=== PATIENT | female | born 1995 | race Caucasian/White ===

== ENCOUNTER 2017-05-27 15:42 | Outpatient (CLI) | payer OTHER ==
[2017-05-27 16:11] LABS: BASOPHILS % (AUTO) 0.3 %; EOSINOPHILS # (AUTO) 0.1 10^3/uL (0.0-0.7); EOSINOPHILS % (AUTO) 0.7 %; HCT - HEMATOCRIT 35.2 % (37.0-47.0); HGB - HEMOGLOBIN 11.7 g/dL (12.0-16.0); LYMPHOCYTES # (AUTO) 2.4 10^3/uL (1.5-3.5); LYMPHOCYTES % (AUTO) 22.3 %; MEAN CORPUSCULAR HEMOGLOBIN 29.1 pg (27.0-31.0); MEAN CORPUSCULAR HGB CONC 33.2 g/dL (32.0-36.0); MEAN CORPUSCULAR VOLUME 87.7 fL (81.0-99.0); MEAN PLATELET VOLUME 8.5 fL (7.9-10.8); MONOCYTES # (AUTO) 0.5 10^3/uL (0.0-1.0); MONOCYTES % (AUTO) 4.4 %; NEUTROPHILS # (AUTO) 7.9 10^3/uL (1.5-6.6); NEUTROPHILS % (AUTO) 72.3 %; RED BLOOD COUNT 4.01 10^6/uL (4.20-5.40); RED CELL DISTRIBUTION WIDTH 12.6 % (12.0-15.0)
[2017-05-27 16:13] LABS: BILIRUBIN,URINE NEGATIVE (NEGATIVE)
[2017-05-27 16:30] LABS: WBC,URINE 0-3 /HPF (0-5)
[2017-05-28 10:08] LABS: TEST RESULT REPORT
== END 2017-05-27 15:43 | disposition home or self-care (01) ==
LOC: LAB 15:42
PROVIDERS: ATTEND Obstetrics & Gynecology
DX: Z36.9 Encounter for antenatal screening, unspecified (principal); R82.99 Other abnormal findings in urine
CPT/HCPCS: 36415; 81001; 81599; 85025; 86592; 86762; 86803; 86850; 86900; 86901; 87340; 87389

== ENCOUNTER 2017-05-28 14:55 | Outpatient (CLI) | payer OTHER | END 2017-05-28 14:56 | LOC: LAB.R 14:55 | PROVIDERS: ATTEND Obstetrics & Gynecology | DX: Z11.3 Encounter for screening for infections with a predominantly sexual mode of transmission (principal); Z36.9 Encounter for antenatal screening, unspecified; R82.99 Other abnormal findings in urine | CPT/HCPCS: 87086; 87491; 87591 ==

== ENCOUNTER 2017-08-07 16:30 | Outpatient (CLI) | payer OTHER | END 2017-08-07 16:31 | disposition home or self-care (01) | LOC: LAB 16:30 | PROVIDERS: ATTEND Obstetrics & Gynecology | DX: Z36.0 Encounter for antenatal screening for chromosomal anomalies (principal) | CPT/HCPCS: 36415; 81599; 82105; 82677; 84702; 86336 ==

== ENCOUNTER 2017-08-28 12:26 | Outpatient (CLI) | payer OTHER ==
--- NOTE | 2017-08-29 09:00 | Ultrasound Report ---
OB ULTRASOUND: 08/28/2017 CLINICAL INDICATION: anatomy. TECHNIQUE: Real-time scanning was performed with loss prevention representative static images obtained. LAST MENSTRUAL PERIOD unsure, 03/2017 CLINICAL AGE -- US AGE 21 weeks 2 days EFW HADLOCK 390 grams EFW% HADLOCK -- HEART RATE 138 bpm EDC -- US EDC 01/06/2018 BPD HADLOCK 21 weeks 6 days; Mean mm 52 HC HADLOCK 21 weeks 3 days; Mean mm 191 AC HADLOCK 21 weeks 0 days; Mean mm 159 FL HADLOCK 20 weeks 5 days; Mean mm 34 PRESENTATION variable PLACENTAL LOCATION posterior CERVICAL LENGTH TV 4.7 cm AMNIOTIC FLUID 15.59 cm, subjectively normal; MVP 4.4 cm FINDINGS There is a single viable intrauterine gestation, in variable position. heart rate is 138 BPM. The placenta is posterior. There is no evidence of placenta previa. The placenta appears to demonstrate a circumvallate configuration. Amniotic fluid volume is subjectively normal, with the deepest pocket of 4.4 cm. By size, the fetus measures 21 weeks 2 days (uncertain LMP). The following anatomic structures were visualized and appear normal: The intracranial contents, including the ventricles and posterior fossa; the lips and orbits; the spine; the heart, including 4 chamber view and outflow tracts, and diaphragm; the abdominal contents, including the stomach, the bilateral kidneys, and urinary bladder, as well as a normal 3 vessel cord insertion; 4 limbs. No free fluid or adnexal lesion is appreciated. IMPRESSION: SINGLE VIABLE INTRAUTERINE GESTATION, MEASURING 21 WEEKS 2 DAYS BY SIZE. NORMAL ANATOMIC SURVEY. CIRCUMVALLATE CONFIGURATION OF THE PLACENTA. FOLLOWUP SCAN TO EVALUATE GROWTH IS RECOMMENDED IN THE THIRD TRIMESTER (28-32 WEEKS GESTATION). TD: 08/28/2017 17:34 MTDD
== END 2017-08-28 12:27 | disposition home or self-care (01) ==
LOC: DI 12:26
PROVIDERS: ATTEND Obstetrics & Gynecology
DX: Z36.9 Encounter for antenatal screening, unspecified (principal); O43.112 Circumvallate placenta, second trimester
CPT/HCPCS: 76811

== ENCOUNTER 2017-09-30 13:01 | Outpatient (CLI) | payer OTHER ==
[2017-09-30 14:17] LABS: HGB - HEMOGLOBIN 10.6 g/dL (12.0-16.0); MEAN CORPUSCULAR HEMOGLOBIN 30.7 pg (27.0-31.0); MEAN CORPUSCULAR HGB CONC 34.1 g/dL (32.0-36.0); MEAN CORPUSCULAR VOLUME 90.1 fL (81.0-99.0); RED BLOOD COUNT 3.46 10^6/uL (4.20-5.40); RED CELL DISTRIBUTION WIDTH 12.4 % (12.0-15.0); WHITE BLOOD COUNT 9.5 x10^3/uL (4.8-10.8)
== END 2017-09-30 13:02 | disposition home or self-care (01) ==
LOC: LAB 13:01
PROVIDERS: ATTEND Obstetrics & Gynecology
DX: Z34.90 Encounter for supervision of normal pregnancy, unspecified, unspecified trimester (principal)
CPT/HCPCS: 36415; 82950; 86850

== ENCOUNTER 2017-10-22 11:27 | Outpatient (CLI) | payer OTHER ==
--- NOTE | 2017-10-23 09:20 | Ultrasound Report ---
OB FOLLOWUP: 10/22/2017 CLINICAL INDICATION: Check growth, circumvallate appearance of the placenta on anatomy scan. COMPARISON: 08/28/2017. TECHNIQUE: Real-time scanning was performed with telemarketing sales representative static images obtained. LAST MENSTRUAL PERIOD: 04/01/2017 Clinical Age: 29 weeks 1 day US Age: 28 weeks 6 days EFW Hadlock: 1174 grams EFW% Hadlock: 34% Heart Rate: 133 bpm EDC: 01/06/2018 US EDC: 01/08/2018 BPD Hadlock: 29 weeks 3 days HC Hadlock: 29 weeks 2 days AC Hadlock: 27 weeks 4 days FL Hadlock: 28 weeks 0 days Presentation: cephalic Placental Location: posterior Cervical Length: 4.4 cm Amniotic Fluid: VERONICA 10.7 cm; MVP 3.4 cm FINDINGS There is a single viable intrauterine gestation, in cephalic presentation. heart rate is 133 BPM. The placenta is posterior, without evidence of previa. Previously seen circumvallate appearance is not reproduced on today's examination. By size, the fetus measures 28 weeks 6 days (29 weeks 1 day by office dating). No free fluid or adnexal lesion is appreciated. IMPRESSION: SINGLE VIABLE INTRAUTERINE GESTATION, WITH EXPECTED GROWTH. TD: 10/22/2017 12:47 [facility]
== END 2017-10-22 11:28 | disposition home or self-care (01) ==
LOC: DI 11:27
PROVIDERS: ATTEND Obstetrics & Gynecology
DX: Z36.2 Encounter for other antenatal screening follow-up (principal)
CPT/HCPCS: 76816

== ENCOUNTER 2017-10-30 14:59 | Outpatient (CLI) | payer OTHER | END 2017-10-30 23:59 | LOC: LAB.R 14:59 | PROVIDERS: ATTEND Obstetrics & Gynecology | DX: O23.43 Unspecified infection of urinary tract in pregnancy, third trimester (principal) | CPT/HCPCS: 87086 ==

== ENCOUNTER 2017-11-16 20:50 | Emergency (ER) | payer OTHER ==
[2017-11-16 20:58] VITALS: BP 140/90
[2017-11-16 21:10] LABS: BILIRUBIN,URINE NEGATIVE (NEGATIVE); GLUCOSE, URINE (UA) NEGATIVE (NEGATIVE); KETONES,URINE (UA) NEGATIVE (NEGATIVE); LEUKOCYTE ESTERASE, URINE SMALL (NEGATIVE); NITRITE,URINE NEGATIVE (NEGATIVE); OCCULT BLOOD,URINE NEGATIVE (NEGATIVE); PH,URINE 6.5 PH (5.0-7.5); PROTEIN,URINE NEGATIVE (NEGATIVE); UROBILINOGEN,URINE 0.2 (NORMAL) E.U./dL (NORMAL)
[2017-11-16 21:20] LABS: BACTERIA,URINE Rare /HPF (None Seen); RBC,URINE 0-5 /HPF (0-5); SQUAMOUS EPITHELIAL CELL,UR MANY Squamous (<= Few); WBC CLUMPS,URINE PRESENT
[2017-11-16 21:21] LABS: CLARITY,URINE CLEAR (CLEAR)
--- NOTE | 2017-11-16 21:22 | ED Physician Documentation ---
PD HPI UPPER EXT INJURY - Stated complaint Stated Complaint: 36 WK PREG/LT ARM PX - Chief complaint Chief Complaint: Ext Problem - History obtained from History obtained from: Patient - History of Present Illness Location: Left, Arm Type of injury: Other (No specific injury.) Timing - onset: Today Associated symptoms: No: Weakness, Numbness Similar symptoms before: Has not had sx before - Additonal information Additional information: The patient is a 22-year-old female who presents with pain in her left axilla, radiating down her arm. It is a mild pain which started this morning and is constant. She denies any traumatic injury. She denies numbness or weakness. She denies history of similar symptoms in the past. She is left-hand dominant. She is currently at 32 weeks gestation. Review of Systems Constitutional: denies: Fever Nose: denies: Congestion Cardiac: denies: Chest pain / pressure Respiratory: denies: Dyspnea, Cough GI: denies: Abdominal Pain, Nausea, Vomiting : denies: Dysuria Skin: denies: Rash Musculoskeletal: denies: Back pain, Extremity swelling Neurologic: denies: Focal weakness, Numbness, Headache PD PAST MEDICAL HISTORY - Past Medical History Past Medical History: Yes Other Past Medical History: Preeclampsia - Past Surgical History Past Surgical History: Yes - Present Medications Home Medications: Ambulatory Orders Medication Instructions Recorded Confirmed Pnv95/Ferrous Fumarate/FA 1 each PO 11/16/17 [ Formula] - Allergies Allergies/Adverse Reactions: Allergies Allergy/AdvReac Type Severity Reaction Status Date / Time No Known Drug Allergies Allergy Verified 11/16/17 20:57 - Social History Does the pt smoke?: No Smoking Status: Never smoker Does the pt drink ETOH?: No Does the pt have substance abuse?: No - Immunizations Immunizations are current?: Yes PD ED PE NORMAL - Vitals Vital signs reviewed: Yes (Initially hypertensive.) - General General: Alert and oriented X 3, Well developed/nourished - HEENT HEENT: Atraumatic, Moist mucous membranes - Neck Neck: No bony TTP, No adenopathy - Cardiac Cardiac: RRR, No murmur - Respiratory Respiratory: No respiratory distress, Clear bilaterally - Abdomen Abdomen: Soft, Non tender, Other (Gravid uterus with fundal height consistent with dates. FHR 160.) - Back Back: No CVA TTP - Derm Derm: No rash - Extremities Extremities: No edema, No calf tenderness / cord, Other (There is mild tenderness to palpation over the anterior aspect of the left axilla/pectoralis region. She has full range of motion of the shoulder. There is no axillary adenopathy, no swelling. Distal neurovascular is intact.) - Neuro Neuro: Alert and oriented X 3, No motor deficit, No sensory deficit Results - Vitals Vitals: Vital Signs - 24 hr 11/16/17 20:54 Temperature 36.5 C Heart Rate 86 Respiratory 20 Rate Blood Pressure 140/90 H O2 Saturation 100 Oxygen O2 Source Room air - Labs Labs: Laboratory Tests 11/16/17 21:03 Urine Color YELLOW Urine Clarity CLEAR Urine pH 6.5 Ur Specific [place] 1.015 Urine Protein NEGATIVE Urine Glucose (UA) NEGATIVE Urine Ketones NEGATIVE Urine Occult Blood NEGATIVE Urine Nitrite NEGATIVE Urine Bilirubin NEGATIVE Urine Urobilinogen 0.2 (NORMAL) Ur Leukocyte Esterase SMALL H Urine RBC 0-5 Urine WBC 6-10 H Urine WBC Clumps PRESENT Ur Squamous Epith Cells MANY Squamous H Urine Bacteria Rare PD MEDICAL DECISION MAKING - ED course Complexity details: considered differential, d/w patient, d/w family ED course: The patient's presentation is significant for mild musculoskeletal discomfort in the left axilla/pectoralis region. There is no evidence of infectious process, and I doubt venous thrombus. I do not think imaging studies are clinically indicated. I discussed with the patient and her symptomatic treatment, outpatient follow-up, as well as potentially worrisome signs or symptoms that should prompt reevaluation in the emergency department. Departure - Departure Disposition: 01 Home, Self Care Clinical Impression: Pain of upper extremity Qualifiers: Laterality: left Qualified Code(s): M79.602 - Pain in left arm Qualifiers: Weeks of gestation: 32 weeks Qualified Code(s): Z3A.32 - 32 weeks gestation of Condition: Stable Instructions: ED Strain Muscle Ext Follow-Up: Earl Reina DO [Provider Admit Priv/Credential] - Comments: Apply ice pack to your upper arm intermittently for the next 2 or 3 days. You can use Tylenol up to 650 mg every 4-6 hours if needed for pain. Follow up with your primary physician within 1-2 weeks. Call to schedule an appointment. Return to the emergency department if you develop increasing pain, numbness or weakness, or otherwise worsening symptoms. Discharge Date/Time: 11/16/17 21:25
== END 2017-11-16 21:25 | disposition home or self-care (01) ==
LOC: ED 20:50
DX: O99.89 Other specified diseases and conditions complicating pregnancy, childbirth and the puerperium (principal); M79.602 Pain in left arm; Z3A.36 36 weeks gestation of pregnancy
CPT/HCPCS: 81001; 99282; 99283

== ENCOUNTER 2017-11-27 08:39 | Outpatient (CLI) | payer OTHER ==
--- NOTE | 2017-11-28 16:17 | Ultrasound Report ---
OB FOLLOWUP: 11/27/2017 CLINICAL INDICATION: Size-date discrepancy. TECHNIQUE: Real-time scanning was performed with training representative static images obtained. LAST MENSTRUAL PERIOD: 04/01/2017 Clinical Age: 34 weeks 2 days US Age: 33 weeks 5 days EFW Hadlock: 2180 g EFW% Hadlock: 21% Heart Rate: 142 bpm EDC: 01/06/2018 US EDC: 01/10/2018 BPD Hadlock: 33 weeks 3 days: Mean mm 83.2 HC Hadlock: 35 weeks 1 day; Mean mm 314.0 AC Hadlock: 33 weeks 0 days; Mean mm 289.3 FL Hadlock: 33 weeks 3 days; Mean mm 64.9 Presentation: cephalic Placental Location: posterior Cervical Length: --- Amniotic Fluid: 12.1 cm FINDINGS: There is a single viable intrauterine gestation in cephalic presentation. heart rate is 142 BPM. The placenta is posterior, without evidence of previa. Amniotic fluid volume is normal, with an VERONICA of 12.1. By size, the fetus measures 33 weeks 5 days (34 weeks 2 days by ultrasound 2017). Estimated weight by Hadlock method is 2180 grams, 21st percentile. IMPRESSION: SINGLE VIABLE INTRAUTERINE GESTATION, WITH EXPECTED GROWTH FROM PREVIOUS ULTRASOUND. MTDD
== END 2017-11-27 08:40 | disposition home or self-care (01) ==
LOC: DI 08:39
PROVIDERS: ATTEND Obstetrics & Gynecology
DX: O26.843 Uterine size-date discrepancy, third trimester (principal); Z3A.33 33 weeks gestation of pregnancy
CPT/HCPCS: 76816

== ENCOUNTER 2017-12-11 08:00 | Outpatient (CLI) | payer OTHER | END 2017-12-11 23:59 | LOC: LAB.R 08:00 | PROVIDERS: ATTEND Obstetrics & Gynecology | DX: Z36.9 Encounter for antenatal screening, unspecified (principal) | CPT/HCPCS: 87081 ==

== ENCOUNTER 2017-12-19 08:00 | Outpatient (CLI) | payer OTHER ==
[2017-12-19 19:27] LABS: TOTAL PROTEIN 24HR,URINE 158 mg/24hr (40-150); TOTAL PROTEIN,URINE TIMED 7 mg/dL; TOTAL VOLUME 24HRS,URINE 2250 mL
== END 2017-12-19 08:01 ==
LOC: LAB.N 08:00
PROVIDERS: ATTEND Obstetrics & Gynecology
DX: Z36.9 Encounter for antenatal screening, unspecified (principal)
CPT/HCPCS: 84156

== ENCOUNTER 2017-12-20 20:04 | Outpatient (CLI) | payer OTHER ==
[2017-12-20 21:04] LABS: CREATININE,URINE 145.4 mg/dL; PROTEIN/CREATININE RATIO,URINE 0.1 (<=0.2)
[2017-12-20 21:18] LABS: BASOPHILS % (AUTO) 0.5 %; EOSINOPHILS # (AUTO) 0.1 10^3/uL (0.0-0.7); EOSINOPHILS % (AUTO) 1.1 %; LYMPHOCYTES # (AUTO) 2.3 10^3/uL (1.5-3.5); LYMPHOCYTES % (AUTO) 25.1 %; MEAN CORPUSCULAR HGB CONC 33.1 g/dL (32.0-36.0); MEAN CORPUSCULAR VOLUME 87.6 fL (81.0-99.0); MEAN PLATELET VOLUME 9.7 fL (7.9-10.8); MONOCYTES # (AUTO) 0.5 10^3/uL (0.0-1.0); MONOCYTES % (AUTO) 5.7 %; NEUTROPHILS # (AUTO) 6.3 10^3/uL (1.5-6.6); NEUTROPHILS % (AUTO) 67.6 %; PLT - PLATELET COUNT 258 10^3/uL (130-450); RED BLOOD COUNT 3.44 10^6/uL (4.20-5.40); RED CELL DISTRIBUTION WIDTH 12.1 % (12.0-15.0); WHITE BLOOD COUNT 9.4 x10^3/uL (4.8-10.8)
[2017-12-20 21:30] LABS: URIC ACID 4.1 mg/dL (2.6-7.2)
[2017-12-20 22:00] VITALS: BP 112/71
== END 2017-12-20 21:45 | disposition home or self-care (01) ==
LOC: WFO 20:04 → FBP 20:06 → WFO 21:45
PROVIDERS: ATTEND Obstetrics & Gynecology
DX: O26.893 Other specified pregnancy related conditions, third trimester (principal); R51 Headache; Z3A.37 37 weeks gestation of pregnancy
CPT/HCPCS: 36415; 81001; 81003; 82570; 83615; 84156; 84450; 84550; 85025; 87086; 99213

== ENCOUNTER 2017-12-22 13:45 | Outpatient (CLI) | payer OTHER ==
[2017-12-22 14:20] VITALS: BP 109/72
== END 2017-12-22 14:20 | disposition home or self-care (01) ==
LOC: WFO 13:45 → FBP 13:48 → WFO 14:20
PROVIDERS: ATTEND Obstetrics & Gynecology
DX: O13.3 Gestational [pregnancy-induced] hypertension without significant proteinuria, third trimester (principal); Z3A.38 38 weeks gestation of pregnancy
CPT/HCPCS: 59025

== ENCOUNTER 2017-12-29 14:02 | Outpatient (CLI) | payer OTHER ==
[2017-12-29 14:32] VITALS: BP 107/74
== END 2017-12-29 16:17 | disposition home or self-care (01) ==
LOC: WFO 14:02 → FBP 14:04 → WFO 16:17
PROVIDERS: ATTEND Obstetrics & Gynecology
DX: O13.3 Gestational [pregnancy-induced] hypertension without significant proteinuria, third trimester (principal); Z3A.39 39 weeks gestation of pregnancy
CPT/HCPCS: 59025

== ENCOUNTER 2017-12-30 09:30 | Outpatient (CLI) | payer OTHER ==
--- NOTE | 2017-12-30 11:17 | Ultrasound Report ---
Procedure Date: 12/30/2017 Accession Number: [id number] / [id number] Procedure: US - OB F/U or Repeat CPT Code: FULL RESULT: EXAM: OB F/U or Repeat DATE: 12/30/2017 10:20 AM CLINICAL HISTORY: Small for gestational age. TECHNIQUE: Real-time scanning was performed with leather goods sales representative static images obtained. COMPARISON: 11/27/2017 ultrasound LAST MENSTRUAL PERIOD: 08/28/2017 FINDINGS: Clinical Age: 39 weeks 0 days US Age: 36 weeks 6 days EFW Hadlock: 2844 grams EFW % Hadlock: 10% Heart Rate: 132 bpm EDC: 01/06/2018 US EDC: 01/21/2018 BPD Hadlock: 37 weeks 0 days; Mean mm 91 HC Hadlock: 39 weeks 0 days; Mean mm 339 AC Hadlock: 35 weeks 4 days; Mean mm 4 FL Hadlock: 35 weeks 4 days; Mean mm 69 Presentation: Vertex Placental Location: Posterior Cervical Length: 3.7 cm Amniotic Fluid: VERONICA 6.6 cm; MVP 3.4 cm IMPRESSION: Single intrauterine gestation size by composite ultrasound measurements today 36 weeks 6 days, 2 weeks behind expected age based on LMP. Estimated weight in the 10th percentile. VERONICA 6.6 cm.
== END 2017-12-30 09:31 | disposition home or self-care (01) ==
LOC: DI 09:30
PROVIDERS: ATTEND Obstetrics & Gynecology
DX: Z36.4 Encounter for antenatal screening for fetal growth retardation (principal)
CPT/HCPCS: 76816

== ENCOUNTER 2017-12-31 19:07 | Outpatient (CLI) | payer OTHER ==
[2017-12-31 20:50] VITALS: BP 109/73
--- NOTE | 2017-12-31 21:36 | PROVIDER PROGRESS NOTE ---
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 O: VSS/AF RNST with mild contractions q4-6 min, Category 1 tracing VERONICA by me 10.6 cm with VTX presentation Cx Exam: 2-3/50/-3/BOWI A/P: Latent Labor at 39 2/7 weeks 10th percentile growth on US [facility]BP all beds are occupied at this time and there is insufficient staffing for admission for delivery in this patient. Safe to go home given above evaluation. Patient dispositioned to home with labor and [facility] precautions. [facility] nursing to contact patient and spouse tomorrow to inform them when there is space for patient to come in, as several of our pp patients should be discharged in AM. All questions answered to pateint and spouse's satisfaction. Objective - Vital Signs/Intake & Output Vital Signs: Vital Signs x48h Temp Pulse Resp BP Pulse Ox 12/31/17 20:30 37.3 C 105 H 18 109/73 98
== END 2017-12-31 21:30 | disposition home or self-care (01) ==
LOC: WFO 19:07 → FBP 19:11 → WFO 21:30
PROVIDERS: ATTEND Obstetrics & Gynecology
DX: O36.5930 Maternal care for other known or suspected poor fetal growth, third trimester, not applicable or unspecified (principal); Z3A.39 39 weeks gestation of pregnancy
CPT/HCPCS: 59025; 99213

== ENCOUNTER 2018-01-01 16:54 | Inpatient (IN) | payer OTHER ==
[2018-01-01] MEDS ORDERED: ONDANSETRON 4 MG/2 ML VIAL IVP PRN ×2 (17:00→23:48)
[2018-01-01] MEDS ORDERED: DINOPROSTONE 10 MG SUPP VG ONE (17:00)
[2018-01-01] MEDS ORDERED: SODIUM CHLORIDE FLUSH 0.9% 10 ML SYRINGE IVP PRN (17:00)
[2018-01-01] MEDS: SODIUM CHLORIDE FLUSH 0.9% 10 ML SYRINGE IVP SCH (17:55)
--- NOTE | 2018-01-01 18:20 | HISTORY & PHYSICAL EXAMINATION ---
DATE OF ADMISSION: 01/01/2018 Physician: Louise Pollard DO FACOG IDENTIFICATION: This is a 22-year-old G3, P0-1-1-1 with an 8-week ultrasound establishing dates, unsure LMP. EDC is 01/05/2018. HISTORY OF PRESENT ILLNESS: The patient is a patient of [facility] who presents for an induction of labor. The patient has been having her routine OB followups and it has been discovered that the baby has been growing size less than date. This was first noticed at about 32 weeks' gestation. The patient had a 10/22/2017 ultrasound as a followup for her circumvallate placenta. It was noted at that time the baby was measuring at 34th percentile. A repeat ultrasound on 11/27/2017 showed a decrease in the growth at 2180 grams and in the 21st percentile. More recently, the patient has had an ultrasound on 12/30/2017 which revealed a further decrease in the growth at 2844 grams or the 10th percentile. Baby is noted to be vertex and placenta posterior, cervical length 3.7 cm. VERONICA 6.6 cm with an MVP of 3.4 cm. The patient's most recent cervical exam showed that she was about 2-3 cm dilated, but still relatively thick at 50 % effacement. Because of the patient's continued decrease in growth concerning for intrauterine growth restriction, we will proceed to an induction of labor. Unfortunately, we have had a high sensitive patient and was unable to induce the patient until today. The patient otherwise was feeling the baby was moving appropriately and denied any vaginal bleeding or loss of fluid. PAST MEDICAL HISTORY 1. Anxiety. 2. Panic attacks. 3. Bipolar disease. PAST SURGICAL HISTORY: Laparoscopic arthroscopy. ALLERGIES: NO KNOWN DRUG ALLERGIES. MEDICATIONS: vitamins. SOCIAL HISTORY: She denies any tobacco, alcohol, or illicit drug use. The patient is to Vinayak who was in the [employer]. They are both originally from [place]. They have a son, Carmine. This is a male . Dr. You is the anticipated quilter fixer for this family. The patient does not want epidural in labor. She also would like to have delayed cord clamping if possible. PAST SURGICAL HISTORY 1. Spontaneous vaginal delivery at 36 weeks' gestation, baby weighed about 2600 grams. 2. One spontaneous at about 4 weeks' gestation. PAST GYNECOLOGICAL HISTORY: She denies any abnormal Pap smears or sexually transmitted diseases. FAMILY HISTORY: Maternal grandmother with breast cancer. Mother with depression diagnosed at age 25. REVIEW OF SYSTEMS: Negative unless otherwise stated. OBJECTIVE VITAL SIGNS: Weight is 134 pounds. Height is 64 inches. BMI is 23. Blood pressure 134/70. GENERAL: The patient is a well-developed, well-nourished female, in no apparent distress. She is alert and oriented x3. HEENT: Within normal limits. CARDIOVASCULAR: Regular. No murmurs or rubs. PULMONARY: Lungs are clear to auscultation bilaterally. ABDOMEN: Gravid, nontender. Fundal height is approximately 35 cm. LABORATORY DATA: laboratories reveal that she is A positive, HIV negative. Pap smear was negative. Chlamydia and gonorrhea are both negative. Quad screen is negative. One-hour GTT is 131. anatomical survey is consistent with dates and within normal limits. She is GBS negative. ASSESSMENT 1. A 22-year-old G3, P0-1-1-1 with a 39 and 3/7 week intrauterine . 2. Decreasing growth suspicious for intrauterine growth restriction. 3. Cervix remote from delivery. PLAN 1. We will proceed for cervical ripening and then induction of labor. We will plan to use Cervidil overnight and hopefully Pitocin in the morning. 2. We will get a CBC and pink holed top. 3. Epidural in labor. 4. Expect spontaneous vaginal delivery. 5. Rubella nonimmune, so we will anticipate giving the patient the MMR after delivery. TD: 01/01/2018 16:41 [facility]
[2018-01-01 18:23] LABS: BASOPHILS # (AUTO) 0.1 10^3/uL (0.0-0.1); BASOPHILS % (AUTO) 0.6 %; EOSINOPHILS # (AUTO) 0.1 10^3/uL (0.0-0.7); EOSINOPHILS % (AUTO) 0.7 %; LYMPHOCYTES # (AUTO) 2.3 10^3/uL (1.5-3.5); LYMPHOCYTES % (AUTO) 21.9 %; MEAN CORPUSCULAR HEMOGLOBIN 28.5 pg (27.0-31.0); MEAN CORPUSCULAR HGB CONC 33.2 g/dL (32.0-36.0); MEAN CORPUSCULAR VOLUME 85.9 fL (81.0-99.0); MEAN PLATELET VOLUME 10.3 fL (7.9-10.8); MONOCYTES # (AUTO) 0.7 10^3/uL (0.0-1.0); MONOCYTES % (AUTO) 6.4 %; NEUTROPHILS # (AUTO) 7.3 10^3/uL (1.5-6.6); NEUTROPHILS % (AUTO) 70.4 %; PLT - PLATELET COUNT 265 10^3/uL (130-450); RED BLOOD COUNT 3.52 10^6/uL (4.20-5.40); RED CELL DISTRIBUTION WIDTH 12.5 % (12.0-15.0); WHITE BLOOD COUNT 10.4 x10^3/uL (4.8-10.8)
[2018-01-01] MEDS: fentaNYL 100 MCG/2 ML VIAL IVP PRN ×2 (20:37→21:37)
[2018-01-01] MEDS ORDERED: ZOLPIDEM 5 MG TABLET PO PRN (21:00)
--- NOTE | 2018-01-01 21:52 | PROVIDER PROGRESS NOTE ---
Labor Progress Note - Uterine Monitoring Uterine Monitoring Mode: positive: External toco Contraction Frequency (min/apart): (Looks like uterine irritability) Contraction Intensity: positive: Moderate - Monitoring Monitor Mode: positive: External ultrasound Heart Rate Baseline: 130's Heart Rate Variability: positive: Moderate (6-25 bmp) Accelerations: positive: Present, 10x10 (=/32 wks) Decelerations: positive: None Strip Review: positive: Category I - Vaginal Exam Dilation (in cm): (No change per RN exam) - Labor Progress Note Labor Progress Note/Additional Text: 22 yo with a 39w3d IUP IUGR at 10%centile 12/30/2017 Cervix remote from delivery Continue cervidil. S/p 2 doses of fentanyl. May have epidural PRN. Expect . Patient aware of increased risk of delivery due to intolerance of labor. Labs, EKG, Meds, Allergy - Lab Results Fish Bones: 01/01/18 18:00 Other Lab Results: Lab Results x24hrs 01/01/18 Range/Units 18:00 WBC 10.4 (4.8-10.8) x10^3/uL RBC 3.52 L (4.20-5.40) 10^6/uL Hgb 10.0 L (12.0-16.0) g/dL Hct 30.2 L (37.0-47.0) % MCV 85.9 (81.0-99.0) fL MCH 28.5 (27.0-31.0) pg MCHC 33.2 (32.0-36.0) g/dL RDW 12.5 (12.0-15.0) % Plt Count 265 (130-450) 10^3/uL MPV 10.3 (7.9-10.8) fL Neut # (Auto) 7.3 H (1.5-6.6) 10^3/uL Lymph # (Auto) 2.3 (1.5-3.5) 10^3/uL Gregory # (Auto) 0.7 (0.0-1.0) 10^3/uL Eos # (Auto) 0.1 (0.0-0.7) 10^3/uL Baso # (Auto) 0.1 (0.0-0.1) 10^3/uL Absolute Nucleated RBC 0.00 x10^3/uL Nucleated RBC % 0.0 /100WBC - Medications Medications: Ambulatory Orders Medication Instructions Recorded Confirmed Pnv95/Ferrous Fumarate/FA 1 each PO 11/16/17 [ Formula] - Allergy Allergy: Allergies Allergy/AdvReac Type Severity Reaction Status Date / Time No Known Drug Allergies Allergy Verified 11/16/17 20:57 Pnv95/Ferrous Fumarate/FA [ Formula] 1 each PO 11/16/17
[2018-01-01] MEDS ORDERED: fent/BUPIV 2 MCG/0.125% 0 ML EP ONE (22:37)
[2018-01-01] MEDS: LACTATED RINGERS 1,000 ML IV SCH (22:45)
[2018-01-01] MEDS ORDERED: fent/BUPIV 2 MCG/0.125% 250 ML EP ONE (23:05)
[2018-01-01] MEDS ORDERED: OXYTOCIN/SODIUM CHLORIDE 500 ML IV ONE (23:09)
--- NOTE | 2018-01-01 23:10 | PROVIDER PROGRESS NOTE ---
Labor Progress Note - Uterine Monitoring Uterine Monitoring Mode: positive: External toco Contraction Frequency (min/apart): Q2 min Contraction Intensity: positive: Moderate to strong Uterine Resting Tone: positive: Soft - Monitoring Monitor Mode: positive: External ultrasound Heart Rate Baseline: 130's Heart Rate Variability: positive: Moderate (6-25 bmp) Accelerations: positive: Present, 15x15 Strip Review: positive: Category I - Vaginal Exam Dilation (in cm): 6 Effacement (%): 60 Station: -3 Cervical Position: Posterior - Labor Progress Note Labor Progress Note/Additional Text: 22 yo with a 39w2d IUP SROM- clear fluid Active labor IUGR Epidural just placed Expect MMR
[2018-01-01] MEDS ORDERED: EPINEPHrine 1 MG/ML AMP IVP ONE (23:30)
[2018-01-01] MEDS ORDERED: LIDO GARGLE 30 ML BOTTLE PO ONE (23:30)
[2018-01-01] MEDS ORDERED: NALOXONE 0.4 MG/ML VIAL IVP PRN (23:48)
[2018-01-01] MEDS ORDERED: fent/BUPIV 2 MCG/0.125% 250 ML EP PRN (23:48)
[2018-01-01] MEDS ORDERED: ePHEDrine 50 MG/ML VIAL IVP PRN (23:48)
[2018-01-01] MEDS ORDERED: METOCLOPRAMIDE 10 MG/2 ML VIAL IVP PRN (23:48)
[2018-01-01] MEDS ORDERED: LACTATED RINGERS 500 ML IV ONE (23:48)
[2018-01-01] MEDS ORDERED: NALBUPHINE 10 MG/ML AMP IVP PRN (23:48)
[2018-01-01] MEDS ORDERED: diphenhydrAMINE INJ 50 MG/ML VIAL IVP PRN (23:48)
[2018-01-02] MEDS ORDERED: MEASLES,MUMPS & RUBELLA VACC 0.5 ML VIAL SUBQ ONE (01:08)
[2018-01-02] MEDS ORDERED: OXYTOCIN/SODIUM CHLORIDE 250 ML IV ONE (01:08)
[2018-01-02] MEDS ORDERED: WITCH HAZEL/GLYCERIN 1 EACH MED..PAD TOP PRN (01:08)
[2018-01-02] MEDS ORDERED: MAGNESIUM HYDROXIDE 2,400 MG/30 ML UDC PO PRN (01:08)
--- NOTE | 2018-01-02 01:13 | DELIVERY NOTE ---
Delivery Note - Labor Labor: positive: Other (Induced with cervidil for IUGR at 39 weeks) - Delivery Method Delivery Method: positive: Spontaneous vaginal delivery - Presentation Presentation: positive: Vertex, OA - occiput anterior - Nuchal Cord Nuchal Cord: positive: None - Episiotomy Type Episiotomy Type: positive: None - Laceration Laceration: positive: 1st degree (No repair required), Labial - Delivery Outcome Delivery Outcome: positive: Livebirth - Central : positive: Placed in direct skin contact with mother Central sex: positive: Male : 9 : 9 - Cord Cord: positive: 3 vessels - Estimated Blood Loss Estimated Blood Loss (in cc): 300 - Post Delivery Events Post Delivery Events: positive: No post delivery events - Delivery Comments (Free Text/Narrative) Delivery Comments (Free Text/Narrative): 22 yo with a 39w2d IUP presented to L&D for an induction of labor for IUGR at 10%centile. Cate given 1 dose of cervidil. She spontaneously progressed and SROM'd with clear fluid. Epidural by Zee Pugh CRNA for pain control. of a viable male named Sebastian. Superficial first degree bilateral labia majora lacerations did not require repair. Placenta delivered spontaneously, intact with 3VC. Apgars 9/9. EBL 300 mL. No complications.
[2018-01-02] MEDS ORDERED: OXYTOCIN 10 UNIT/ML VIAL ONE (02:00)
[2018-01-02] MEDS: ACETAMINOPHEN 325 MG TABLET PO PRN (02:10)
[2018-01-02] MEDS: SODIUM CHLORIDE FLUSH 0.9% 10 ML SYRINGE IVP SCH ×3 (02:14→21:43)
[2018-01-02] MEDS: HYDROcod/ACETAM 5/325 MG TABLET PO PRN ×4 (04:14→22:58)
[2018-01-02] MEDS: CELECOXIB 100 MG CAPSULE PO SCH ×2 (10:50→21:41)
[2018-01-02] MEDS: DOCUSATE SODIUM 100 MG CAPSULE PO SCH ×2 (10:51→21:41)
[2018-01-02] MEDS: LACTATED RINGERS 1,000 ML IV SCH ×2 (21:37→21:43)
[2018-01-03] MEDS: HYDROcod/ACETAM 5/325 MG TABLET PO PRN (05:56)
[2018-01-03] MEDS: DOCUSATE SODIUM 100 MG CAPSULE PO SCH (09:45)
[2018-01-03] MEDS: ACETAMINOPHEN 325 MG TABLET PO PRN (09:45)
[2018-01-03] MEDS: CELECOXIB 100 MG CAPSULE PO SCH (09:45)
[2018-01-03] MEDS ORDERED: MEASLES,MUMPS & RUBELLA VACC 0.5 ML VIAL SUBQ ONE (11:00)
--- NOTE | 2018-01-03 11:43 | Discharge Plan ---
Discharge Plan Disposition: 01 Home, Self Care Condition: Stable Diet: Regular Activity Restrictions: Activity as Tolerated Shower Restrictions: No Driving Restrictions: No Weight Bearing: Full Weight No Smoking: If you smoke, Please STOP! Call for help. Follow-up with: Srini Bowman MD [Provider Admit Priv/Credential] -
[2018-01-03 12:37] VITALS: BP 123/67
--- NOTE | 2018-01-03 13:04 | DISCHARGE SUMMARY ---
Physician: Srini Bowman MD DATE OF ADMISSION: 01/01/2018 DATE OF DISCHARGE: 01/03/2018 DIAGNOSES 1. growth restriction. 2. Induction of labor. 3. History of circumvallate cord insertion. Rubella nonimmune mother. PROCEDURE: Vaginal delivery of a living male (Dr. Louise Pollard). COMPLICATIONS: None. HISTORY: The patient is a 22-year-old, , 3, para 0-1-1-1 whose EDC of January 05 was established by 8-week ultrasound. She had regular care. A 32- week ultrasound was accomplished due to circumvallate cord insertion and established the fetus at the 34th percentile. Fundal progression lagged and, on November 27, percentile growth was 21. Repeat ultrasound on December 30 found the fetus at 2844 grams, or 10th percentile. This established indication for induction at 39 weeks 3 days' gestation. Cervix was not initially favorable and, therefore, Prostin ripening was initially done. BASIC LABS: Blood type A positive. Antibody screen negative. HIV negative. RPR negative. Gonorrhea and chlamydia negative. Quad marker normal. Glucola challenge test 131, rubella nonimmune, and hepatitis B surface antigen negative. REFERENCE: Dr. Pollard's admission H and P. HOSPITAL COURSE: Dr. Pollard admitted the patient and tracing was category 1 and Cervidil was placed. Hemoglobin was 10.0, mildly anemic. As the induction progressed, the patient was given epidural. She entered the active phase on the , at or about 11 p.m. Cervix was 6 cm, 60%, and -3 station. The patient smoothly progressed to completion. On the , at 0044 hours, a living male was born weighing 7 pounds 2 ounces and scoring Apgars of 9/9. There was a minor labial laceration, which was uneventfully repaired. There were no complications and blood loss was estimated at 300. Reference Dr. Pollard's delivery note. Post delivery, the patient did well, advancing to normal activities and self- care. She demonstrated the ability to nurse well. Pediatric check of the was good , and on the morning of the , the patient was deemed fit to discharge. The patient received rubella vaccine prior to discharge. Warning sign callback instructions were reviewed. FOLLOWUP: She will be seen in the clinic in 2 weeks. Final followup will be in 6-8 weeks. The patient is considering Depo-Provera for final control method. DISCHARGE MEDICATIONS 1. Ibuprofen 600 q.i.d. 2. Colace 250 b.i.d. 3. [place] 5/325 q.4 hours p.r.n. TD: 01/03/2018 11:50 [facility]
--- NOTE | 2018-01-03 13:37 | Labor Flowsheet ---
Labor Flowsheet Datetime Report Generated by CPN: 01/03/2018 13:37 Datetime: 01/03/2018 12:10 VITAL SIGNS NBP Sys/Azucena/Mean (mmHg): 123 : 67 : 80 Pulse: 68 LaborFlag: Labor Datetime: 01/02/2018 05:49 SpO2 (%): 100 Datetime: 01/02/2018 00:44 UTERINE ACTIVITY Monitor Mode: External Frequency (min): 1-2 Quality: Strong Duration (sec): 60-80 Pattern: Normal: <= 5 Contractions in 10 Minutes Resting Tone (Palpate): Relaxed ASSESSMENT A Monitor Mode: External US FHR Baseline Rate : 140 Variability: Minimal - Undetectable to <=5 bpm Accelerations: None Decelerations: Early; Variable Category: Category II Datetime: 01/02/2018 00:30 Actions for Decelerations: Sterile Vaginal Exam; Provider Notified Datetime: 01/02/2018 00:29 Pushing Progress: Descent with Pushing; with Pushing Datetime: 01/02/2018 00:09 STAGE 2 Pushing: Coached on Pushing; Urge to Push; Involuntary Pushing Pushing Position: Pushing with Contractions COMMUNICATION Communication: Provider at Bedside Communication Comments: attend delivery Datetime: 01/02/2018 00:07 VAGINAL EXAM Dilatation (cm): 10.0 Effacement (%): 100 Station: 0 Exam by: Latrice, MD Datetime: 01/02/2018 00:06 Vaginal Exam Comments: anterior lip Datetime: 01/01/2018 23:58 Medication Comments: ephedrine given Datetime: 01/01/2018 23:57 Provider Notified (Name): Zee Aube Datetime: 01/01/2018 23:42 Patient Position/Activity: Left Lateral; High Fowlers Datetime: 01/01/2018 23:36 Pain Presence: Intermittent Pain Type: Pressure Datetime: 01/01/2018 23:30 Comments: repetitive earlies Datetime: 01/01/2018 23:26 Monitor Interventions for FHR: Ultrasound Adjusted I/O Interventions: Ice Chips Given Datetime: 01/01/2018:18 ANESTHESIA Anesthesia Plans: Epidural Epidural Procedure Other: Pump Started Datetime: 01/01/2018 23:07 Epidural Procedure: Loading Dose Datetime: 01/01/2018 23:00 ASSESSMENT B Category: Category I Hygiene: Peripad Changed Datetime: 01/01/2018 22:59 Epidural Positioning: Sitting Datetime: 01/01/2018 22:54 Patient Care Comments: sitting up for epidural Datetime: 01/01/2018 22:48 Anesthesia Comments: in room Datetime: 01/01/2018 22:32 Membrane Status: Ruptured Membranes Rupture Method: Spontaneous Amniotic Fluid Color: Clear Amniotic Fluid Amount: Moderate Amniotic Fluid Odor: Normal Membrane Comments: 2232 Datetime: 01/01/2018 22:26 PATIENT CARE IV/Blood Work: IV Bolus Started; IV Bolus Given ml @ 1000 Datetime: 01/01/2018 22:00 PAIN Pain Scale: 10 Datetime: 01/01/2018 21:40 Pain Relief Measures: Pain Medication Given; Comfort Measures Pain Coping: Breathing Through Contractions Comfort Measures: Breathing/Relaxation Datetime: 01/01/2018 21:39 MEDICATIONS Analgesics/Sedatives: Fentanyl (mcg) @ 100 Datetime: 01/01/2018 20:38 Pain Goal: 6 Datetime: 01/01/2018 19:49 Respirations: 20 Temperature (C): 36.9 Pain Location: Abdomen MATERNAL ASSESSMENT Level of Consciousness: Fully Conscious DTR's/Clonus: DTRs 2+; No Clonus Headache: Denies Nausea/Vomiting: Denies RUQ Epigastric Pain: Denies Datetime: 01/01/2018 19:28 Monitor Interventions for UA: [place] Adjusted Datetime: 01/01/2018 19:00 Stage of : Labor Datetime: 01/01/2018 18:23 Cervical Ripening Agents: Cervidil Datetime: 01/01/2018 18:22 Breath Sounds, Left: Clear and Equal Breath Sounds, Right: Clear and Equal Datetime: 01/01/2018 18:14 Oxygen Method: Room Air
== END 2018-01-03 13:10 | disposition home or self-care (01) | DRG 775 ==
LOC: WFO 16:54 → FBP 17:00 → OBSVTOIN 23:24
PROVIDERS: ADMIT Obstetrics & Gynecology; ATTEND Obstetrics & Gynecology
PROC: 10E0XZZ Delivery of Products of Conception, External Approach (ICD-10-PCS; principal; 2018-01-02)
DX: O36.5930 Maternal care for other known or suspected poor fetal growth, third trimester, not applicable or unspecified (principal); O99.02 Anemia complicating childbirth; O70.0 First degree perineal laceration during delivery; O99.344 Other mental disorders complicating childbirth; F41.0 Panic disorder [episodic paroxysmal anxiety]; F31.9 Bipolar disorder, unspecified; Z3A.39 39 weeks gestation of pregnancy; Z37.0 Single live birth
CPT/HCPCS: 59200; 85025; 96374; 96375; 96376

== ENCOUNTER 2018-03-04 09:27 | Outpatient (CLI) | payer OTHER ==
--- NOTE | 2018-03-04 11:57 | CT Report ---
Procedure Date: 03/04/2018 Accession Number: [id number] / [id number] Procedure: CT - Pelvis W/O CPT Code: FULL RESULT: EXAM: CT BONY PELVIS WITHOUT CONTRAST EXAM DATE: 03/04/2018 09:40 AM. CLINICAL HISTORY: Low back pain. 2 months. COMPARISON: None. TECHNIQUE: Thin-section axial images were acquired of the pelvis without contrast. Post-processing: Coronal and sagittal reformats. Other: None. In accordance with CT protocol optimization, one or more of the following dose reduction techniques were utilized for this exam: automated exposure control, adjustment of mA and/or KV based on patient size, or use of iterative reconstructive technique. FINDINGS: Bones: No fracture or bone lesion. 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 Symphysis Pubis: Unremarkable. Right Hip: The joint space is preserved. No calcified loose bodies. Left Hip: The joint space is preserved. No calcified loose bodies. Musculature: Normal. No fatty atrophy. Pelvic Cavity: The visualized bowel, bladder, and reproductive organs are unremarkable on this noncontrast exam. Other: No lymphadenopathy. No free air or free fluid. The other visualized soft tissues are unremarkable. IMPRESSION: 1. No sacral abnormality. No focal bony lesion or fracture. 2. 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 [facility]
== END 2018-03-04 09:28 | disposition home or self-care (01) ==
LOC: DI 09:27
PROVIDERS: ATTEND Obstetrics & Gynecology
DX: M47.818 Spondylosis without myelopathy or radiculopathy, sacral and sacrococcygeal region (principal)
CPT/HCPCS: 72192

== ENCOUNTER 2020-06-15 13:56 | Outpatient (CLI) | payer OTHER ==
[2020-06-15 14:14] LABS: HGB - HEMOGLOBIN 11.9 g/dL (12.0-16.0); MEAN CORPUSCULAR HEMOGLOBIN 29.5 pg (27.0-31.0); MEAN CORPUSCULAR HGB CONC 32.8 g/dL (32.0-36.0); MEAN CORPUSCULAR VOLUME 89.9 fL (81.0-99.0); MEAN PLATELET VOLUME 9.5 fL (7.9-10.8); RED BLOOD COUNT 4.04 10^6/uL (4.20-5.40); RED CELL DISTRIBUTION WIDTH 11.9 % (12.0-15.0); WHITE BLOOD COUNT 4.9 x10^3/uL (4.8-10.8)
== END 2020-06-15 13:57 | disposition home or self-care (01) ==
LOC: LAB 13:56
PROVIDERS: ATTEND Advanced Practice Midwife
DX: Z01.419 Encounter for gynecological examination (general) (routine) without abnormal findings (principal)
CPT/HCPCS: 36415; 84443; 85027